=== PATIENT | male | born 2000 | race Caucasian/White ===

== ENCOUNTER 2019-09-22 07:50 | Day surgery (SDC) | payer OTHER ==
[~2019-09-22 07:50] MED LIST: CEFAZOLIN SODIUM 2 GM in DEXTROSE 5%-WATER 100 ML IV PRN; FENTANYL CITRATE INJ/PF 100 MCG/2 ML AMPUL ONE; MIDAZOLAM 2 MG/2 ML INJ ONE; ONDANSETRON HCL INJ/PF 4 MG/2 ML SDV ONE; PROPOFOL INJ 200 MG/20 ML VIAL IV ONE
[2019-09-22] MEDS ORDERED: BUPIVACAINE HCL 0.5 % INJ/PF 30 ML SDV ONE (08:52)
[2019-09-22] MEDS ORDERED: LIDOCAINE 1% INJ-PF (10 MG/ML) 30 ML SDV ONE (08:52)
[2019-09-22] MEDS ORDERED: PROMETHAZINE HCL INJ 25 MG/1 ML VIAL IV PRN ×2 (11:12)
[2019-09-22] MEDS ORDERED: MORPHINE SULFATE 10 MG/ML INJ IV PRN ×2 (11:12→11:21)
[2019-09-22] MEDS ORDERED: ONDANSETRON HCL INJ/PF 4 MG/2 ML SDV IV PRN (11:12)
[2019-09-22] MEDS ORDERED: FENTANYL CITRATE INJ/PF 100 MCG/2 ML AMPUL IV PRN ×3 (11:12)
[2019-09-22] MEDS ORDERED: MEPERIDINE HCL/PF INJ 25 MG/1 ML DISP.SYRIN IV PRN (11:12)
[2019-09-22] MEDS ORDERED: DIPHENHYDRAMINE HCL 50 MG/ML VIAL IV PRN (11:12)
[2019-09-22] MEDS ORDERED: OXYCODONE-ACETAMINOPHEN 5-325 MG TABLET PO PRN (11:21)
--- NOTE | 2019-09-22 11:22 | Discharge Summary ---
Discharge Summary (SDC) - Discharge Final Diagnosis: Right index finger open fracture dislocation, extensor tendon disruption Date of Surgery: 09/22/19 Discharge Date: 09/22/19 Condition: Good Treatment or Instructions: Schedule Follow Up w/ Dr. Sebas Rodriguez @ [facility] to be seen in 10-14 days or as scheduled [place]: [place]: [place]: Ice and elevate Keep splint clean/dry/intact, do not remove. If your fingers become numb please unwrap the Matt wrap but leave the splint in place, if the sensation does not return within 30 minutes please return to the emergency department. May begin finger range of motion attempting to make full fist. Please use ibuprofen (Motrin or Advil) 600-800 mg every 8 hours as needed for pain or fever DO NOT TAKE w/ TORADOL may use once TORADOL complete. You may also use acetaminophen (Tylenol) 1000 mg every 4-6 hours as needed for pain or fever. Please be aware that many medications contain acetaminophen, do not exceed a total of 1000 mg of acetaminophen every 6 hours. If ibuprofen and acetaminophen are not sufficient for your pain you may take the Percocet/[place]. Please be aware that the Percocet/[place] does contain Tylenol. Stool softener of choice when on pain medication. USE OF [id number] IBUPROFEN: Ibuprofen (Advil, Nuprin, Medipren, Motrin IB) is a medication for fever and pain control. In addition, it has anti- inflammatory effects which may be beneficial, especially in the treatment of injuries. It's best to take ibuprofen with food. Persons with ulcer disease or allergy to aspirin should notify their physician of this before taking ibuprofen. Ibuprofen can be given every four to six hours, for a total of four doses daily. Age Pain or fever dose Antiinflammatory dose 6-8 yr 200 mg (1 tab) 200 mg (1 tab) 9-11 yr 200 mg (1 tab) 200-400 mg (1-2 tab) 11-14 yr 200-400 mg (1-2 tab) 400 mg (2 tab) 15-adult 400 mg (2 tab) 600 mg (3 tab) ORAL NARCOTIC MEDICATION: You have been given a prescription for pain control. This medication is a narcotic. It's best taken with food, as nausea can result if taken on an empty stomach. Don't operate machinery or drive within six hours of taking this medication. Do not combine this medicine with alcohol, or with any medication which can cause sedation (such as cold tablets or sleeping pills) unless you get permission from the physician. Narcotics tend to cause constipation. If possible, drink plenty of fluids and eat a diet high in fiber and fruits. Please be aware that prescription narcotics also have the potential for abuse. People become addicted to these medications because of the general sense of wellbeing that they induce. This feeling along with a significant reduction in tension, anxiety, and aggression provides a stimulating seductive quality to these drugs. Once your pain is under control, we encourage you to discard your unused narcotics. Prescriptions: Amoxicillin 1 tab PO TID #21 Oxycodone HCl/Acetaminophen [Percocet 5-325 mg Tablet] 1 tab PO Q6 PRN #25 tab PRN Reason: Referrals: VIKKI MONTOYA, [facility] [Primary Care Provider] - Discharge Diet: As Tolerated Respiratory Treatments at Home: Deep Breathing/Coughing Discharge Activity: No Lifting Over 10 Pounds, No Lifting/Push/Pulling Report the Following to Your Physician Immediately: Fever over 101 Degrees, Unusual Bleeding, Redness, Swelling, Warmth, Increased Soreness
--- NOTE | 2019-09-22 11:32 | Operative Report ---
Operative Report DATE OF SURGERY: 09/22/19 PREOPERATIVE DIAGNOSIS: Open fracture-dislocation right index proximal phalanx, extensor tendon disruption POSTOPERATIVE DIAGNOSIS: Same OPERATION: Irrigation debridement right open fracture right index finger proximal phalanx. Open reduction internal fixation intra-articular proximal phalanx fracture. Open reduction internal fixation right index PIP joint dislocation. Extensor tendon repair zone III right index finger SURGEON: marj melissa ANESTHESIA: LMAC COMPLICATIONS: None ESTIMATED BLOOD LOSS: Minimal PROCEDURE: Indication for procedure: 18-year-old male who sustained a open fracture dislocation of his right index finger patient underwent irrigation debridement at outside facility was sent to [facility] [place]. Injuries included extensor tendon disruption and intra-articular fracture. Upon consultation we discussed treatment options including operative versus nonoperative intervention after discussing risks and benefits of each joint decision was made to proceed with operative intervention. Procedure In Detail: Patient was seen and evaluated in the preoperative holding area. The RIGHT upper extremity was initialized and marked. Patient received 2g of Ancef IV for bacterial prophylaxis. Patient was taken back to the operative room where transferred to the operative table. Once they were adequately anesthetized a nonsterile tourniquet was placed on the upper extremity. A surgical team debriefing was performed ensuring all instrumentation was available, the surgical procedure was discussed with possible concerns reviewed. A digital block was performed utilizing 10 mL of 1% lidocaine without epinephrine. The upper extremity was prepped with Betadine and draped in a sterile fashion. A timeout was done identifying correct patient, procedure and extremity everyone in attendance agree with this and verbalized no concerns. The extremity was exsanguinated the tourniquet was inflated to 250 mmHg. Previous sutures were removed and wound was copiously irrigated. Nonviable soft tissue including skin was excised. C arm fluoroscopy was obtained demonstrating malreduction of the fracture decision was then made to proceed with revision ORIF. K wires were removed. Which revealed instability of the PIP joint and a coronal fracture. Intra-articular fracture was exposed a coronal split was identified and open fracture copiously irrigated. Coronal split measured the entire width of the intra-articular segment of the proximal phalanx and approximately 6 mm from anterior to posterior. There was bone loss noted along the proximal portion. Intra-articular fracture was anatomically reduced under direct visualization and secured with two 0.035 K wires. Which provided adequate fixation of the fracture. A cross K wire was placed through the fracture site of the coronal split into intact proximal phalanx retrograde and PIP dislocation was then reduced under C- arm fluoroscopy. K wire was advanced antegrade into the middle phalanx to maintain reduction. The extensor mechanism was partially avulsed along the ulnar border of the middle phalanx with transverse disruption proximally along the radial aspect of the extensor tendon was then extended longitudinally and a L shaped configuration. A medial anchor was placed at the anatomic footprint of the central slip ulnarly. Extensor mechanism was then repaired with a Krakw suture and secured. The remaining radial aspect of the extensor mechanism was reapproximated with #4 FiberWire [id number] sutures. The ulnar collateral ligament of the PIP joint was torn midsubstance and this was repaired with a 3-0 Vicryl suture. Tourniquet was deflated and a peripheral bleeding was controlled with bipolar cautery. Patient had normal peripheral fusion/skin turgor. At completion wound was copiously irrigated with normal saline. Final C arm fluoroscopy was obtained demonstrating acceptable reduction of the fracture. K wires were then cut and left deep to the skin. Skin was reapproximated with interrupted 4-0 nylon suture. Wound was dressed with Xeroform 4 x 4's and patient was placed in a volar plaster splint leaving the DIP and MP joints free for motion. Sponge counts, instrument counts, needle counts counts were correct. Patient was then awoken from anesthesia. Transferred from the operating room table to the operating room stretcher. There was no intraoperative complications patient tolerated procedure well stable to PACU. Postoperative plan: Patient will follow-up as scheduled for wound check and radiographs. Plan will be for removal of the transarticular K wire 4-6 weeks and internal fixation K wires at 6 weeks, pending fracture healing.
[2019-09-22] MEDS: HYDROMORPHONE HCL INJ/PF 2 MG/ML AMPULE ONE ×3 (11:50→12:00)
[2019-09-22] MEDS ORDERED: OXYCODONE-ACETAMINOPHEN 5-325 MG TABLET ONE (12:34)
--- NOTE | 2019-09-22 13:47 | RADIOLOGY REPORT (SQ) ---
EXAM DESCRIPTION: NO CHG FLUORO; FINGER RIGHT COMPLETED DATE/TIME: 09/22/2019 1:38 pm REASON FOR STUDY: ORIF RIGHT 2ND / INDEX FINGER ASSISTED WITH FLUOROSCOPY IN OR; ORIF RIGHT INDEX/2N D FINGER ASSISTED WITH FLUOROSCOPY IN OR S62.600B FRACTURE OF UNSP PHALANX OF R IDX FNGR, INIT FOR OP COMPARISON: None. FLUOROSCOPY TIME: 16 seconds 5 images saved to PACS. TECHNIQUE: Intra-operative images acquired during surgical procedure to evaluate progress. NUMBER OF IMAGES: 5 LIMITATIONS: None. FINDINGS: Orthopedic pin fixation of fracture of the proximal 2nd phalanx. IMPRESSION: IMAGE(S) OBTAINED DURING PROCEDURE. COMMENT: Quality ID 145: Final reports for procedures using fluoroscopy that document radiation exp osure indices, or exposure time and number of fluorographic images (if radiation exposure indices are not available) Please consult full operative report of the attending physician for description of the procedure. TECHNICAL DOCUMENTATION: JOB ID: [id number] 2010 [employer]- All Rights Reserved Reading location - IP/workstation name: [email or web address]
--- NOTE | 2019-09-22 13:47 | RADIOLOGY REPORT (SQ) ---
EXAM DESCRIPTION: NO CHG FLUORO; FINGER RIGHT COMPLETED DATE/TIME: 09/22/2019 1:38 pm REASON FOR STUDY: ORIF RIGHT 2ND / INDEX FINGER ASSISTED WITH FLUOROSCOPY IN OR; ORIF RIGHT INDEX/2N D FINGER ASSISTED WITH FLUOROSCOPY IN OR S62.600B FRACTURE OF UNSP PHALANX OF R IDX FNGR, INIT FOR OP COMPARISON: None. FLUOROSCOPY TIME: 16 seconds 5 images saved to PACS. TECHNIQUE: Intra-operative images acquired during surgical procedure to evaluate progress. NUMBER OF IMAGES: 5 LIMITATIONS: None. FINDINGS: Orthopedic pin fixation of fracture of the proximal 2nd phalanx. IMPRESSION: IMAGE(S) OBTAINED DURING PROCEDURE. COMMENT: Quality ID 145: Final reports for procedures using fluoroscopy that document radiation exp osure indices, or exposure time and number of fluorographic images (if radiation exposure indices are not available) Please consult full operative report of the attending physician for description of the procedure. TECHNICAL DOCUMENTATION: JOB ID: [id number] 2010 [email or web address]- All Rights Reserved Reading location - IP/workstation name: [email or web address]
[2019-09-22 15:29] VITALS: BP 118/72
== END 2019-09-22 13:40 | disposition home or self-care (01) ==
LOC: OROUT 07:50
PROVIDERS: ATTEND Orthopaedic Surgery
DX: S63.280A Dislocation of proximal interphalangeal joint of right index finger, initial encounter (principal); S66.310A Strain of extensor muscle, fascia and tendon of right index finger at wrist and hand level, initial encounter; W22.8XXA Striking against or struck by other objects, initial encounter
CPT/HCPCS: 73140; 26410; 26746; C1713 ×3; J2250; J0690; J3010; J3490; J1170; J7060; J2704; J2405